=== PATIENT | male | born 1945 | race Hispanic/Latino ===

== ENCOUNTER 2017-08-28 09:36 | Emergency (ER) | payer MEDICARE ==
[2017-08-28 09:48] VITALS: BMI 28.3
[2017-08-28] MEDS ORDERED: Oxycodone/Acetaminophen 5/325 mg Tab PO STA (10:22)
[2017-08-28 10:39] VITALS: RESP 20
[2017-08-28 10:41] LABS: SQUAMOUS EPITHIAL < 1 /hpf (0-5); URINE BILIRUBIN NEGATIVE (NEGATIVE); URINE BLOOD NEGATIVE (NEGATIVE); URINE CLARITY Clear (Clear); URINE COLOR Yellow (YELLOW); URINE GLUCOSE (UA) NORMAL (Normal); URINE LEUKOCYTE ESTERASE NEG Leu/uL (Negative); URINE PROTEIN 3+ mg/dL (NEGATIVE); URINE UROBILINOGEN NORMAL mg/dL (0.2-1.0)
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
[2017-08-28] MEDS ORDERED: Oxycodone/Acetaminophen 5/325 mg Tab ONE (10:57)
--- NOTE | 2017-08-28 11:02 | RAD ---
Date of service: 08/28/2017 PROCEDURE: Radiographs of the Lumbar Spine. HISTORY: back pain COMPARISON: No prior. FINDINGS: BONES: Normal alignment. No listhesis. No fracture. DISC SPACES: Narrowed L4-5 intervertebral disc space with anterior osteophytes consistent with degenerative disc disease. Remaining disc spaces are maintained in height. OTHER FINDINGS: None. IMPRESSION: Degenerative disc disease at L4-5. Otherwise unremarkable examination.
[2017-08-28 11:36] VITALS: BP 155/76; PULSE 55; TEMP 99.5
[2017-08-28 18:11] VITALS: O2SAT 97
== END 2017-08-28 11:58 | disposition home or self-care (01) ==
LOC: C.ER 09:36
DX: M54.5 Low back pain (principal)